=== PATIENT | male | born 1970 | race Caucasian/White ===

== ENCOUNTER 2018-06-19 08:28 | Emergency (ER) | payer SELFPAY ==
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
--- NOTE | 2018-06-20 10:07 | RADIOLOGY REPORT ---
EXAM: LUMBAR SPINE HISTORY: BACK PAIN. TECHNIQUE: AP and lateral views of the lumbar spine were performed. FINDINGS: There is normal vertebral body height. There is disk space narrowing and spondylotic spurring at L4-L5 and L5-S1 levels. There is bilateral neural foraminal narrowing at L5-S1. Mild atherosclerotic change of the abdominal aorta. IMPRESSION: DISK SPACE NARROWING AND SPONDYLOTIC SPURRING AT L4-L5 AND L5-S1 LEVELS. THERE IS BILATERAL NEURAL FORAMINAL NARROWING AT L5-S1. JOB NUMBER: [] MTDD
--- NOTE | 2018-06-20 10:20 | RADIOLOGY REPORT ---
EXAM: CERVICAL SPINE HISTORY: NECK PAIN. TECHNIQUE: AP, lateral, oblique and open mouth views of the cervical spine were performed. FINDINGS: There is disk space narrowing and spondylotic spurring at C3-C4. No evidence of fracture, subluxation or perched facet. IMPRESSION: DISK SPACE NARROWING AND SPONDYLOTIC SPURRING AT C3-C4. JOB NUMBER: [id number] MTDD
== END 2018-06-19 10:31 | disposition home or self-care (01) ==
LOC: ER 08:28
DX: S13.9XXA Sprain of joints and ligaments of unspecified parts of neck, initial encounter (principal); M54.5 Low back pain; R20.0 Anesthesia of skin; Z87.891 Personal history of nicotine dependence; V43.52XA Car driver injured in collision with other type car in traffic accident, initial encounter
CPT/HCPCS: 72050; 72100; 99283